=== PATIENT | male | born 1950 | race Caucasian/White ===

== ENCOUNTER 2018-06-09 12:57 | Inpatient (IN) | payer OTHER, BC ==
--- NOTE | 2018-06-09 13:21 | PDOC ---
History of Present Illness - General Chief Complaint: Shortness of Breath Stated Complaint: COPD, HYPOXIA Time Seen by Provider: 06/09/18 13:04 History Source: Patient, Spouse Exam Limitations: Dementia - History of Present Illness Initial Comments: 68 yo M history dementia, HTN, HL, COPD presents with SOB. History from patient is limited due to history of dementia. As per , he was admitted to the hospital previously at [place] with severe pneumonia, hypercarbic respiratory failure requiring intubation. Patient does not recall the admission due to dementia. He was diagnosed with COPD at the time. He was sent by PMD today for hypoxia to 76% measured in the office. Patient denies any complaints at present. As per , she notes that he has had decreased exercise tolerance recently. No cough, fever. +Leg swelling. Past History - Past Medical History Allergies/Adverse Reactions: Allergies Allergy/AdvReac Type Severity Reaction Status Date / Time No Known Allergies Allergy Verified 06/09/18 13:40 Home Medications: Ambulatory Orders Albuterol Sulfate Inhaler - [Ventolin Hfa Inhaler -] 1 - 2 inh PO TID PRN Alprazolam [Xanax] 2 mg PO BID 06/09/18 Atenolol [Tenormin] 50 mg PO DAILY 06/09/18 Atorvastatin Ca [Lipitor] 80 mg PO HS 06/09/18 Buprenorphine HCl 2 tab SL BID 06/09/18 Bupropion HCl [Wellbutrin Xl -] 150 mg PO DAILY 06/09/18 Bupropion HCl [Wellbutrin Xl -] 300 mg PO DAILY 06/09/18 Duloxetine HCl [Cymbalta] 60 mg PO BID 06/09/18 Fluticasone/Salmeterol [Advair 250-50 Diskus] 1 each IH BID PRN 06/09/18 Levothyroxine [Synthroid -] 75 mcg PO DAILY 06/09/18 Quetiapine Fumarate [Seroquel -] 75 mg PO BID 06/09/18 Tamsulosin HCl [Flomax] 0.4 mg PO BID 06/09/18 Timolol 0.25% [Timoptic 0.25%] 1 drop OU BID 06/09/18 Umeclidinium [place] [Incruse Ellipta] 62.5 mcg IH DAILY PRN 06/09/18 Review of Systems - Review of Systems Able to Perform ROS?: No (limited by dementia) *Physical Exam - Physical Exam Comments: GENERAL: Awake, alert, and oriented to person and place, in no acute distress HEAD: No signs of trauma EYES: PERRLA, EOMI, sclera anicteric, conjunctiva clear ENT: Auricles normal inspection, hearing grossly normal, nares patent, oropharynx clear without exudates. Moist mucosa NECK: Normal ROM, supple, no lymphadenopathy, JVD, or masses LUNGS: Breath sounds equal, clear to auscultation bilaterally. No wheezes, and no crackles HEART: Regular rate and rhythm, normal S1 and S2, no murmurs, rubs or gallops ABDOMEN: Soft, nontender, normoactive bowel sounds. No guarding, no rebound. No masses EXTREMITIES: Limited ROM LUE (history recent humerus fracture with nonunion). Remainder of extremities with normal range of motion. 2+ pitting edema to knees B/L. No clubbing or cyanosis. No cords, erythema, or tenderness. NEUROLOGICAL: Cranial nerves II through XII grossly intact. Normal speech. Motor and sensation intact. SKIN: Warm, Dry, normal turgor, no rashes or lesions noted. Heart Score/ECG Review - ECG Impressions Comment:: EKG read 13:59- NSR 84 bpm, no acute ST/T changes ED Treatment Course - LABORATORY CBC & Chemistry Diagram: 06/09/18 13:55 06/09/18 13:55 Medical Decision Making - Medical Decision Making 06/09/18 13:55 Pt presents with recent SOB, dec exercise tolerance, noted to have hypoxia at PMD office. Patient denies any symptoms and states that he is fine. Suspect CHF vs pna. Will obtain labs, CXR, EKG. 06/09/18 19:[address] Mcintosh at shift change. Awaiting BNP result, delayed by lab error, had to be repeated. DDx is COPD vs CHF vs. PE. Nebs given. If BNP is low (as per no history of CHF), PE would be more likely. CTA pending as well. Patient initially was refusing admission, however, when he is off O2, he desats down to 68%. He expressed concern that he would miss his pain mgmt appt tomorrow where he is prescribed his suboxone. It is difficult to get another appointment with her until June. I d/w hospitalist, as he was concerned about withdrawal, a consult can be placed to get his medication in hospital. *DC/Admit/Observation/Transfer Diagnosis at time of Disposition: Shortness of breath - Discharge Dispostion Condition at time of disposition: Guarded - Referrals Referrals: Napoleon Brown [Primary Care Provider] - - Patient Instructions - Post Discharge Activity
[2018-06-09 13:39] VITALS: BMI 26.1
[2018-06-09 14:23] LABS: BASO % 0.8 % (0-2.0); EOS % 5.5 % (0-4.5); HEMATOCRIT 40.1 % (35.4-49); HEMOGLOBIN 13.1 GM/dl (11.7-16.9); LYMPH % 23.3 % (8-40); MCH 32.6 pg (25.7-33.7); MCHC 32.7 g/dl (32.0-35.9); MEAN CELL VOLUME 99.8 fl (80-96); MONO % 8.9 % (3.8-10.2); NEUT % 61.5 % (42.8-82.8); PLATELET COUNT 178 K/MM3 (134-434); RBC 4.02 M/mm3 (4.00-5.60); RDW 14.8 % (11.9-15.9); WHITE BLOOD COUNT 4.7 K/mm3 (4.0-10.8)
[2018-06-09] MEDS ORDERED: ACETAMINOPHEN 325 MG TABLET (FP) PO ONE (14:29)
[2018-06-09] MEDS ORDERED: ACETAMINOPHEN 325 MG TABLET (FP) ONE (14:32)
[2018-06-09 14:36] LABS: ALBUMIN 3.3 g/dl (3.5-5.0); ALK PHOS 58 U/L (32-92); ANION GAP 5 MMOL/L (8-16); BILIRUBIN,TOTAL 0.7 mg/dl (0.2-1.0); BLOOD UREA NITROGEN 18 mg/dl (7-18); CALCIUM 8.6 mg/dl (8.4-10.2); CHLORIDE 94 mmol/L (98-107); CO2 36 mmol/L (22-28); CREATININE 0.8 mg/dl (0.6-1.3); GLUCOSE,RANDOM 130 mg/dl (74-106); POTASSIUM 3.9 mmol/L (3.5-5.1); SGOT/AST 22 U/L (10-42); SGPT/ALT 16 U/L (10-40); SODIUM 135 mmol/L (136-145); TOT PROT 5.8 g/dl (6.4-8.3)
[2018-06-09 14:42] LABS: INR 1.12 (0.82-1.09); PROTHROMBIN TIME (PATIENT) 12.5 SEC (10.2-13.0)
[2018-06-09 17:50] LABS: URINE APPEARANCE Clear; URINE BILIRUBIN Negative (NEGATIVE); URINE COLOR Yellow; URINE GLUCOSE (UA) Negative (NEGATIVE); URINE KETONE Negative (NEGATIVE); URINE LEUK ESTERASE Negative (NEGATIVE); URINE NITRITE Negative (NEGATIVE); URINE PROTEIN Negative (NEGATIVE); URINE UROBILINOGEN 0.2 (0.2-1.0)
[2018-06-09] MEDS: ALBUTEROL SO4 2.5/IPRATROPIUM 0.5 INH SOL 3 ML VIAL.NEB. NEB SCH ×4 (18:30→20:15)
[2018-06-09] MEDS ORDERED: ALBUTEROL SO4 2.5/IPRATROPIUM 0.5 INH SOL 3 ML VIAL.NEB. NEB ONE ×2 (18:44→18:53)
--- NOTE | 2018-06-09 19:19 | PDOC ---
*Physical Exam - Vital Signs Last Vital Signs Temp Pulse Resp BP Pulse Ox 97.7 F 77 20 101/74 92 L 06/09/18 13:00 06/09/18 17:30 06/09/18 17:30 06/09/18 17:30 06/09/18 17:30 ED Treatment Course - LABORATORY CBC & Chemistry Diagram: 06/09/18 13:55 06/09/18 13:55 - ADDITIONAL ORDERS Additional order review: Laboratory Results 06/09/18 06/09/18 06/09/18 17:30 13:55 13:55 PT with INR INR Sodium Potassium Chloride Carbon Dioxide Anion Gap BUN Creatinine Creat Clearance w eGFR Random Glucose Lactic Acid 1.4 Calcium Total Bilirubin AST ALT Alkaline Phosphatase Creatine Kinase Troponin I Total Protein Albumin Urine Color Yellow Urine Appearance Clear Urine pH 6.0 Ur Specific [place] 1.015 Urine Protein Negative Urine Glucose (UA) Negative Urine Ketones Negative Urine Blood Negative Urine Nitrite Negative Urine Bilirubin Negative Urine Urobilinogen 0.2 Ur Leukocyte Esterase Negative Blood Type A POSITIVE Antibody Screen 06/09/18 06/09/18 06/09/18 13:55 13:55 13:55 PT with INR INR Sodium 135 L Potassium 3.9 Chloride 94 L Carbon Dioxide 36 H Anion Gap 5 L BUN 18 Creatinine 0.8 Creat Clearance w eGFR > 60 Random Glucose 130 H Lactic Acid Calcium 8.6 Total Bilirubin 0.7 AST 22 ALT 16 Alkaline Phosphatase 58 Creatine Kinase 38 Troponin I < 0.03 Total Protein 5.8 L Albumin 3.3 L Urine Color Urine Appearance Urine pH Ur Specific [place] Urine Protein Urine Glucose (UA) Urine Ketones Urine Blood Urine Nitrite Urine Bilirubin Urine Urobilinogen Ur Leukocyte Esterase Blood Type A POSITIVE Antibody Screen Negative 06/09/18 13:55 PT with INR 12.5 INR 1.12 Sodium Potassium Chloride Carbon Dioxide Anion Gap BUN Creatinine Creat Clearance w eGFR Random Glucose Lactic Acid Calcium Total Bilirubin AST ALT Alkaline Phosphatase Creatine Kinase Troponin I Total Protein Albumin Urine Color Urine Appearance Urine pH Ur Specific [place] Urine Protein Urine Glucose (UA) Urine Ketones Urine Blood Urine Nitrite Urine Bilirubin Urine Urobilinogen Ur Leukocyte Esterase Blood Type Antibody Screen 06/09/18 13:55 RBC 4.02 MCV 99.8 H MCHC 32.7 RDW 14.8 MPV 9.0 Neutrophils % 61.5 Lymphocytes % 23.3 Monocytes % 8.9 Eosinophils % 5.5 H Basophils % 0.8 - Medications Given in the ED: ED Medications Discontinued Medications Generic Name Dose Route Start Last Admin Trade Name Micky PRN Reason Stop Dose Admin Albuterol/Ipratropium 1 amp 06/09/18 18:00 06/09/18 19:10 Duoneb - NEB 06/09/18 18:46 1 amp Q15M KARAN Administration Progress Note - Progress Note Progress Note: Care of this patient was transferred to ri at 7pm from Dr. Evans. Patient is a 68 year old male with some baseline dementia who was sent in from his PMD for evaluation of hypoxia. Patient was noted to have an O2 saturation of 76% in ED on room air. Patient was placed on oxygen and his O2 sat improved to the mid 90s. Patient workup is nearly complete however he has a BNP as well as a BNP and CT under the chest pending to rule out CHF and PE. Patient will need an admission once his workup is complete. BNP was normal Patient's CT of the chest showed no evidence of pulmonary embolism however does show consolidation of the right lower lobe as well as marked COPD changes. Of note also there is a nodule in the left upper lobe. Patient will be admitted for pneumonia and COPD exacerbation. She will be admitted to the hospitalist service. *DC/Admit/Observation/Transfer Diagnosis at time of Disposition: Shortness of breath Pneumonia Qualifiers: Pneumonia type: due to unspecified organism Laterality: right Lung location: lower lobe of lung Qualified Code(s): J18.1 - Lobar pneumonia, unspecified organism COPD (chronic obstructive pulmonary disease) Qualifiers: COPD type: unspecified COPD Qualified Code(s): J44.9 - Chronic obstructive pulmonary disease, unspecified - Discharge Dispostion Condition at time of disposition: Guarded Decision to Admit order: Yes - Referrals Referrals: Napoleon Brown [Primary Care Provider] - - Patient Instructions - Post Discharge Activity
[2018-06-09 20:25] LABS: N-TERMINAL BNP 24.53 pg/ml (5-125)
[2018-06-09] MEDS ORDERED: CEFTRIAXONE 1,000 MG in DEXTROSE 5%-WATER - 50 ML IVPB ONE (22:20)
[2018-06-09] MEDS ORDERED: cefTRIAXone SODIUM 1 GM VIAL ONE (22:27)
[2018-06-10] MEDS ORDERED: BUPRENORPHINE HCL 2 MG TAB.SUBL SL PRN (01:30)
--- NOTE | 2018-06-10 01:39 | HP ---
CHIEF COMPLAINT: hypoxia PCP: Kevin HISTORY OF PRESENT ILLNESS: This is a 68 year old female with a significant PMH HTN, HLD, COPD, recent hospitalization for pneumonia with hypercarbic respiratory failure requiring intubation at [facility] one month ago who presented to the ED from his PCP office for hypoxia. Ox sat 76 in PCP office. Pt reports that pt is supposed to use oxygen at home but refuses. Upon exam pt initially difficult and combative but settled down and permitted exam. Pt's conversation very tangential and difficult to obtain accurate information from him. He denies any respiratory distress, fever or cough. ER course was notable for: (1) ox sat 76 on room air, up into 90s with 5LNC (2) CO2 36 on BMP (3) WBC 4.7 Recent Travel: pt denies PAST MEDICAL HISTORY: dementia, HTN, HLD, COPD, PNA, hypercarbic respiratory failure, recent left arm fracture PAST SURGICAL HISTORY: inguinal hernia repair Social History: Smoking: pipe 2-3 times daily Alcohol: wine a couple times/week Drugs: pt denies Family History: brother as , PNA mother age 96 father in his 60s, Colon vs liver ca Allergies No Known Allergies Allergy (Verified 06/09/18 13:40) HOME MEDICATIONS: 3 Medication Instructions Recorded Albuterol Sulfate Inhaler - 1 - 2 inh PO TID PRN 06/09/18 [Ventolin Hfa Inhaler -] Alprazolam [Xanax] 2 mg PO BID 06/09/18 Atenolol [Tenormin] 50 mg PO DAILY 06/09/18 Atorvastatin Ca [Lipitor] 80 mg PO HS 06/09/18 Buprenorphine HCl 2 tab SL BID 06/09/18 Bupropion HCl [Wellbutrin Xl -] 150 mg PO DAILY 06/09/18 Bupropion HCl [Wellbutrin Xl -] 300 mg PO DAILY 06/09/18 Duloxetine HCl [Cymbalta] 60 mg PO BID 06/09/18 Fluticasone/Salmeterol [Advair 1 each IH BID PRN 06/09/18 250-50 Diskus] Levothyroxine [Synthroid -] 75 mcg PO DAILY 06/09/18 Quetiapine Fumarate [Seroquel -] 75 mg PO BID 06/09/18 Tamsulosin HCl [Flomax] 0.4 mg PO BID 06/09/18 Timolol 0.25% [Timoptic 0.25%] 1 drop OU BID 06/09/18 Umeclidinium [place] [Incruse 62.5 mcg IH DAILY PRN 06/09/18 Ellipta] REVIEW OF SYSTEMS CONSTITUTIONAL: Absent: fever, chills, diaphoresis, generalized weakness, malaise, loss of appetite, weight change HEENT: Absent: rhinorrhea, nasal congestion, throat pain, throat swelling, difficulty swallowing, mouth swelling, ear pain, eye pain, visual changes CARDIOVASCULAR: Absent: chest pain, syncope, palpitations, irregular heart rate, lightheadedness , peripheral edema RESPIRATORY: Absent: cough, shortness of breath, dyspnea with exertion, orthopnea, wheezing, stridor, hemoptysis GASTROINTESTINAL: Absent: abdominal pain, abdominal distension, nausea, vomiting, diarrhea, constipation, melena, hematochezia GENITOURINARY: Absent: dysuria, frequency, urgency, hesitancy, hematuria, flank pain, genital pain MUSCULOSKELETAL: Absent: myalgia, arthralgia, joint swelling, back pain, neck pain SKIN: Absent: rash, itching, pallor HEMATOLOGIC/IMMUNOLOGIC: Absent: easy bleeding, easy bruising, lymphadenopathy, frequent infections ENDOCRINE: Absent: unexplained weight gain, unexplained weight loss, heat intolerance, cold intolerance NEUROLOGIC: Absent: headache, focal weakness or paresthesias, dizziness, unsteady gait, seizure, mental status changes, bladder or bowel incontinence PSYCHIATRIC: Absent: anxiety, depression, suicidal or homicidal ideation, hallucinations. PHYSICAL EXAMINATION Vital Signs - 24 hr 3 06/09/18 06/09/18 06/09/18 13:00 13:55 14:44 Temperature 97.7 F Pulse Rate 92 H Pulse Rate [ 78 Apical] Respiratory 18 19 Rate Blood Pressure 103/75 Blood Pressure 105/71 [Right Arm] O2 Sat by Pulse 96 97 96 Oximetry (%) 3 06/09/18 06/09/18 06/09/18 15:24 15:35 17:30 Temperature Pulse Rate 81 Pulse Rate [ 86 77 Apical] Respiratory 22 H 20 Rate Blood Pressure Blood Pressure 109/72 101/74 [Right Arm] O2 Sat by Pulse 93 L 96 92 L Oximetry (%) 3 06/09/18 06/09/18 06/09/18 21:00 21:26 21:56 Temperature Pulse Rate Pulse Rate [ 83 92 H 92 H Apical] Respiratory 18 21 H 19 Rate Blood Pressure Blood Pressure 116/88 103/77 96/78 [Right Arm] O2 Sat by Pulse 94 L 91 L 90 L Oximetry (%) 3 06/10/18 00:35 Temperature 97.8 F Pulse Rate Pulse Rate [ 89 Apical] Respiratory 18 Rate Blood Pressure Blood Pressure 104/69 [Right Arm] O2 Sat by Pulse 94 L Oximetry (%) GENERAL: Awake, alert, and oriented to person and hospital, in no acute distress. HEAD: Normal with no signs of trauma. EYES: Pupils equal, round and reactive to light, extraocular movements intact, sclera anicteric, conjunctiva clear. No lid lag. EARS, NOSE, THROAT: Ears normal, nares patent, oropharynx clear without exudates. Moist mucous membranes. NECK: Normal range of motion, supple without lymphadenopathy, JVD, or masses. LUNGS: Breath sounds equal, scattered expiratory wheezes. Able to speak in full sentences. No accessory muscle use. HEART: Regular rate and rhythm, normal S1 and S2 without murmur, rub or gallop. ABDOMEN: Soft, nontender, not distended, normoactive bowel sounds, no guarding, no rebound, no masses. No hepatomegaly or splenomegaly. MUSCULOSKELETAL: Normal range of motion at all joints. No bony deformities or tenderness. No CVA tenderness. L arm in a sling. UPPER EXTREMITIES: 2+ pulses, warm, well-perfused. No cyanosis. No clubbing. No peripheral edema. LOWER EXTREMITIES: 1+ pulses, warm, well-perfused. No calf tenderness. No peripheral edema. NEUROLOGICAL: Cranial nerves II-XII intact. Normal speech. Normal gait. PSYCHIATRIC: Good eye contact. tangential speech, discusses many conspiracy theories about health care in [place] SKIN: Warm, dry, normal turgor, no rashes or lesions noted, normal capillary refill. old ecchymosis to left hip Laboratory Results - last 24 hr 3 06/09/18 06/09/18 06/09/18 13:55 13:55 13:55 WBC 4.7 RBC 4.02 Hgb 13.1 Hct 40.1 MCV 99.8 H MCH 32.6 MCHC 32.7 RDW 14.8 Plt Count 178 MPV 9.0 Absolute Neuts (auto) 2.9 Neutrophils % 61.5 Lymphocytes % 23.3 Monocytes % 8.9 Eosinophils % 5.5 H Basophils % 0.8 PT with INR 12.5 INR 1.12 Sodium 135 L Potassium 3.9 Chloride 94 L Carbon Dioxide 36 H Anion Gap 5 L BUN 18 Creatinine 0.8 Creat Clearance w eGFR > 60 Random Glucose 130 H Lactic Acid 1.4 Calcium 8.6 Total Bilirubin 0.7 AST 22 ALT 16 Alkaline Phosphatase 58 Creatine Kinase 38 Troponin I < 0.03 B-Natriuretic Peptide 24.53 Total Protein 5.8 L Albumin 3.3 L Urine Color Urine Appearance Urine pH Ur Specific [place] Urine Protein Urine Glucose (UA) Urine Ketones Urine Blood Urine Nitrite Urine Bilirubin Urine Urobilinogen Ur Leukocyte Esterase Blood Type A POSITIVE Antibody Screen Negative 3 Urine Color Yellow 06/09/18 17:30 Urine Appearance Clear 06/09/18 17:30 Urine pH 6.0 (4.5-8) 06/09/18 17:30 Ur Specific [place] 1.015 (1.010-1.035) 06/09/18 17:30 Urine Protein Negative (NEGATIVE) 06/09/18 17:30 Urine Glucose (UA) Negative (NEGATIVE) 06/09/18 17:30 Urine Ketones Negative (NEGATIVE) 06/09/18 17:30 Urine Blood Negative (NEGATIVE) 06/09/18 17:30 Urine Nitrite Negative (NEGATIVE) 06/09/18 17:30 Urine Bilirubin Negative (NEGATIVE) 06/09/18 17:30 Ur Leukocyte Esterase Negative (NEGATIVE) 06/09/18 17:30 Radiology Reports Chest CTA IMPRESSION: There is no evidence of a pulmonary embolus within the main pulmonary artery and its proximal branches, bilaterally. Atelectatic changes/ consolidation of the right lung base, suggestive of pneumonia. Moderate to marked COPD changes mainly involving the upper lobes. 6 mm nodule in the left upper lobe, posteriorly abutting the fissure, seen on axial image 21 for which a follow-up CT scan of the chest in one year is needed. Reported By: Miguel Angel Marmolejo MD 06/09/18 8143 CXR portable Imaging reveals clear lungs, unfolded aorta, prominent fabiola especially on the right and normal heart. An acute process is not seen. The angles are sharp and the bones and soft tissues are intact. There are no prior studies for comparison. Reported By: Gigi Guillen MD 06/09/18 1804 ASSESSMENT/PLAN: 68yM with PMH dementia, HTN, HLD, COPD, PNA, hypercarbic respiratory failure presented to the ED with hypoxia. hypoxic respiratory failure/COPD exac - pt refusing ABG but pt is likely hypercarbic as well. - cont oxygen. - pulmonary consult - doubt CT findings represent acute PNA given lack of fever, cough or elevated WBC, will hold further ABT - solumedrol 40mg IVP q6h - duoneb QID - home advair changed to formulary symbicort - home incruse changed to formulary spiriva HTN/HLD - cont pt home meds Psych/dementia - cont home meds DVT PPX - heparin 5000u SC TID FEN - tolerating po - bmp in am - low sodium diet as tolerated. Dispo: pt currently requires further inpatient management of his emergent condition. Visit type - Emergency Visit Emergency Visit: Yes ED Registration Date: 06/09/18 Care time: The patient presented to the Emergency Department on the above date and was hospitalized for further evaluation of their emergent condition. - New Patient This patient is new to me today: Yes Date on this admission: 06/10/18 - Critical Care Critical Care patient: No
[2018-06-10] MEDS ORDERED: ALBUTEROL SO4 0.083% IH SOL 2.5 MG/3 ML VIAL.NEB. NEB PRN (04:04)
[2018-06-10] MEDS: methylPREDNISolone NA SUCC 40 MG/1 ML VIAL IVPUSH SCH ×2 (04:23→08:14)
[2018-06-10] MEDS ORDERED: LEVOTHYROXINE NA 75 MCG TABLET (FP) PO SCH (07:00)
[2018-06-10] MEDS ORDERED: ALBUTEROL SO4 2.5/IPRATROPIUM 0.5 INH SOL 3 ML VIAL.NEB. NEB SCH (08:00)
[2018-06-10 08:27] LABS: BASO % 0.2 % (0-2.0); EOS % 0.4 % (0-4.5); HEMOGLOBIN 13.5 GM/dl (11.7-16.9); LYMPH % 4.7 % (8-40); MCH 32.2 pg (25.7-33.7); MCHC 32.1 g/dl (32.0-35.9); MEAN CELL VOLUME 100.5 fl (80-96); MEAN PLT VOLUME 9.2 fl (7.5-11.1); MONO % 0.5 % (3.8-10.2); NEUT % 94.2 % (42.8-82.8); PLATELET COUNT 204 K/MM3 (134-434); RBC 4.18 M/mm3 (4.00-5.60); RDW 15.5 % (11.9-15.9); WHITE BLOOD COUNT 8.3 K/mm3 (4.0-10.8)
[2018-06-10 08:34] LABS: ANION GAP 2 MMOL/L (8-16); BLOOD UREA NITROGEN 15 mg/dl (7-18); CALCIUM 8.7 mg/dl (8.4-10.2); CHLORIDE 98 mmol/L (98-107); CO2 36 mmol/L (22-28); CREATININE 0.7 mg/dl (0.6-1.3); GLUCOSE,RANDOM 128 mg/dl (74-106); MAGNESIUM 1.9 mg/dL (1.8-2.4); PHOSPHOROUS 3.5 mg/dl (2.5-4.6); POTASSIUM 4.2 mmol/L (3.5-5.1); SODIUM 136 mmol/L (136-145)
[2018-06-10 09:29] VITALS: BP 118/73; TEMP 97.8
[2018-06-10] MEDS ORDERED: TAMSULOSIN HCL 0.4 MG CAP PO SCH (10:00)
[2018-06-10] MEDS ORDERED: TIOTROPIUM BROMIDE 2.5 MCG (SPIRIVA) RESPIMAT INHALER IH SCH (10:00)
[2018-06-10] MEDS ORDERED: TIMOLOL 0.25% OPHTHALMIC SOL 5 ML BOTTLE OU SCH (10:00)
[2018-06-10] MEDS ORDERED: BUDESONIDE/FORMETEROL FUMARATE 80/4.5 mcg INHALER IH SCH (10:00)
[2018-06-10] MEDS ORDERED: ATENOLOL 50 MG TABLET (FP) PO SCH (10:00)
[2018-06-10] MEDS ORDERED: QUEtiapine FUMARATE 25 MG TABLET (FP) PO SCH (10:00)
[2018-06-10] MEDS ORDERED: ALPRAZolam 2 MG TABLET PO SCH ×2 (10:00→22:00)
[2018-06-10] MEDS ORDERED: DULoxetine HCL 30 MG CAPSULE.DR (FP) PO SCH (10:00)
--- NOTE | 2018-06-10 10:36 | PN ---
Physical Exam: SUBJECTIVE: Patient seen and examined OBJECTIVE: Vital Signs Period Temp Pulse Resp BP Sys/Jarvis Pulse Ox Last 24 Hr 97.5 F-97.8 F 77-93 17-22 96-118/69-91 76-97 GENERAL: The patient is awake, alert, and fully oriented, in no acute distress. HEAD: Normal with no signs of trauma. EYES: PERRL, extraocular movements intact, sclera anicteric, conjunctiva clear. No ptosis. ENT: Ears normal, nares patent, oropharynx clear without exudates, moist mucous membranes. NECK: Trachea midline, full range of motion, supple. LUNGS: Breath sounds equal, clear to auscultation bilaterally, no wheezes, no crackles, no accessory muscle use. HEART: Regular rate and rhythm, S1, S2 without murmur, rub or gallop. ABDOMEN: Soft, nontender, nondistended, normoactive bowel sounds, no guarding, no rebound, no hepatosplenomegaly, no masses. EXTREMITIES: 2+ pulses, warm, well-perfused, no edema. NEUROLOGICAL: Cranial nerves II through XII grossly intact. Normal speech, gait not observed. PSYCH: Normal mood, normal affect. SKIN: Warm, dry, normal turgor, no rashes or lesions noted Laboratory Results - last 24 hr 06/09/18 06/09/18 06/09/18 13:55 13:55 13:55 WBC 4.7 RBC 4.02 Hgb 13.1 Hct 40.1 MCV 99.8 H MCH 32.6 MCHC 32.7 RDW 14.8 Plt Count 178 MPV 9.0 Absolute Neuts (auto) 2.9 Neutrophils % 61.5 Lymphocytes % 23.3 Monocytes % 8.9 Eosinophils % 5.5 H Basophils % 0.8 PT with INR 12.5 INR 1.12 Sodium 135 L Potassium 3.9 Chloride 94 L Carbon Dioxide 36 H Anion Gap 5 L BUN 18 Creatinine 0.8 Creat Clearance w eGFR > 60 Random Glucose 130 H Lactic Acid Calcium 8.6 Phosphorus Magnesium Total Bilirubin 0.7 AST 22 ALT 16 Alkaline Phosphatase 58 Creatine Kinase 38 Troponin I B-Natriuretic Peptide 24.53 Total Protein 5.8 L Albumin 3.3 L Urine Color Urine Appearance Urine pH Ur Specific [place] Urine Protein Urine Glucose (UA) Urine Ketones Urine Blood Urine Nitrite Urine Bilirubin Urine Urobilinogen Ur Leukocyte Esterase Blood Type Antibody Screen 06/09/18 06/09/18 06/09/18 13:55 13:55 13:55 WBC RBC Hgb Hct MCV MCH MCHC RDW Plt Count MPV Absolute Neuts (auto) Neutrophils % Lymphocytes % Monocytes % Eosinophils % Basophils % PT with INR INR Sodium Potassium Chloride Carbon Dioxide Anion Gap BUN Creatinine Creat Clearance w eGFR Random Glucose Lactic Acid 1.4 Calcium Phosphorus Magnesium Total Bilirubin AST ALT Alkaline Phosphatase Creatine Kinase Troponin I < 0.03 B-Natriuretic Peptide Total Protein Albumin Urine Color Urine Appearance Urine pH Ur Specific [place] Urine Protein Urine Glucose (UA) Urine Ketones Urine Blood Urine Nitrite Urine Bilirubin Urine Urobilinogen Ur Leukocyte Esterase Blood Type A POSITIVE Antibody Screen Negative 06/09/18 06/09/18 06/10/18 13:55 17:30 08:04 WBC 8.3 RBC 4.18 Hgb 13.5 Hct 42.0 MCV 100.5 H MCH 32.2 MCHC 32.1 RDW 15.5 Plt Count 204 MPV 9.2 Absolute Neuts (auto) 7.9 Neutrophils % 94.2 H D Lymphocytes % 4.7 L D Monocytes % 0.5 L D Eosinophils % 0.4 D Basophils % 0.2 PT with INR INR Sodium Potassium Chloride Carbon Dioxide Anion Gap BUN Creatinine Creat Clearance w eGFR Random Glucose Lactic Acid Calcium Phosphorus Magnesium Total Bilirubin AST ALT Alkaline Phosphatase Creatine Kinase Troponin I B-Natriuretic Peptide Total Protein Albumin Urine Color Yellow Urine Appearance Clear Urine pH 6.0 Ur Specific [place] 1.015 Urine Protein Negative Urine Glucose (UA) Negative Urine Ketones Negative Urine Blood Negative Urine Nitrite Negative Urine Bilirubin Negative Urine Urobilinogen 0.2 Ur Leukocyte Esterase Negative Blood Type A POSITIVE Antibody Screen 06/10/18 08:04 WBC RBC Hgb Hct MCV MCH MCHC RDW Plt Count MPV Absolute Neuts (auto) Neutrophils % Lymphocytes % Monocytes % Eosinophils % Basophils % PT with INR INR Sodium 136 Potassium 4.2 Chloride 98 Carbon Dioxide 36 H Anion Gap 2 L BUN 15 Creatinine 0.7 Creat Clearance w eGFR > 60 Random Glucose 128 H Lactic Acid Calcium 8.7 Phosphorus 3.5 Magnesium 1.9 Total Bilirubin AST ALT Alkaline Phosphatase Creatine Kinase Troponin I B-Natriuretic Peptide Total Protein Albumin Urine Color Urine Appearance Urine pH Ur Specific [place] Urine Protein Urine Glucose (UA) Urine Ketones Urine Blood Urine Nitrite Urine Bilirubin Urine Urobilinogen Ur Leukocyte Esterase Blood Type Antibody Screen Active Medications Generic Name Dose Route Start Last Admin Trade Name Freq PRN Reason Stop Dose Admin Albuterol Sulfate 1 amp 06/10/18 04:04 Ventolin 0.083% Nebulizer Soln - NEB Q4H PRN SHORT OF BREATH/WHEEZING Alprazolam 2 mg 06/10/18 22:00 Xanax - PO HS KARAN Atenolol 50 mg 06/10/18 10:00 06/10/18 09:55 Tenormin - PO 50 mg DAILY KARAN Administration Atorvastatin Calcium 80 mg 06/10/18 22:00 Lipitor - PO HS [facility] Budesonide/Formoterol Fumarate 2 puff 06/10/18 10:00 06/10/18 10:12 Symbicort 80/4.5mcg - IH 2 puff BID KARAN Administration Buprenorphine HCl 2 mg 06/10/18 01:30 Subutex - SL BID PRN PAIN LEVEL 6-10 Bupropion HCl 150 mg 06/10/18 10:00 06/10/18 09:54 Wellbutrin Xl - PO 150 mg DAILY KARAN Administration Bupropion HCl 300 mg 06/10/18 10:00 06/10/18 09:54 Wellbutrin Xl - PO 300 mg DAILY KARAN Administration Duloxetine HCl 60 mg 06/10/18 10:00 06/10/18 09:53 Cymbalta - PO 60 mg BID KARAN Administration Levothyroxine Sodium 75 mcg 06/10/18 07:00 06/10/18 06:48 Synthroid - PO 75 mcg DAILY@0700 KARAN Administration Methylprednisolone Sodium Succinate 40 mg 06/10/18 04:15 06/10/18 08:14 Solu-Medrol - IVPUSH 40 mg Q6H-IV KARAN Administration Quetiapine Fumarate 75 mg 06/10/18 10:00 06/10/18 09:54 Seroquel - PO 75 mg BID KARAN Administration Tamsulosin HCl 0.4 mg 06/10/18 10:00 06/10/18 09:53 Flomax - PO 0.4 mg BID KARAN Administration Timolol [place] 1 drop 06/10/18 10:00 06/10/18 10:12 Timoptic 0.25% OU 1 drop BID KARAN Administration Tiotropium [place] 2 puff 06/10/18 10:00 06/10/18 10:12 Spiriva Respimat IH 2 puff DAILY KARAN Administration ASSESSMENT/PLAN:
--- NOTE | 2018-06-10 10:43 | PN ---
Progress Note (short form) - Note Progress Note: PULMONARY CONSULTATION DICTATED 06/10/18 IMP ACUTE ON CHRONIC HYPOXEMIC/HYPERCAPNEIC RESPIRATORY FAILURE RLL CONSOLIDATION LIKELY ATELECTASIS CANNOT R/O PNEUMONIA ADVANCED COPD HTN HLD PLAN INHALED BRONCHODILATORS IV STEROIDS ABX SUPPLEMENTAL O2 SPUTUM C+S STRESS IMPORTANCE OF COMPLIANCE WITH O2 AND MEDS Problem List - Problems (1) Acute on chronic respiratory failure with hypoxia and hypercapnia Code(s): J96.21 - ACUTE AND CHRONIC RESPIRATORY FAILURE WITH HYPOXIA; J96.22 - ACUTE AND CHRONIC RESPIRATORY FAILURE WITH HYPERCAPNIA (2) COPD (chronic obstructive pulmonary disease) Code(s): J44.9 - CHRONIC OBSTRUCTIVE PULMONARY DISEASE, UNSPECIFIED Qualifiers: COPD type: unspecified COPD Qualified Code(s): J44.9 - Chronic obstructive pulmonary disease, unspecified (3) Pneumonia Code(s): J18.9 - PNEUMONIA, UNSPECIFIED ORGANISM Qualifiers: Pneumonia type: due to unspecified organism Laterality: right Lung location: lower lobe of lung Qualified Code(s): J18.1 - Lobar pneumonia, unspecified organism (4) Shortness of breath Code(s): R06.02 - SHORTNESS OF BREATH (5) HTN (hypertension) Code(s): I10 - ESSENTIAL (PRIMARY) HYPERTENSION (6) HLD (hyperlipidemia) Code(s): E78.5 - HYPERLIPIDEMIA, UNSPECIFIED
--- NOTE | 2018-06-10 11:13 | CONS ---
DATE OF CONSULTATION: 06/10/2018 PULMONARY CONSULTATION REFERRING PHYSICIAN: Kaylene Hunt NP Patient is a 68-year-old white male with past medical history of COPD, recently hospitalized at [facility] secondary to pneumonia complicated by hypercapnic respiratory failure requiring intubation one month ago, discharged home on inhaled bronchodilators, and home O2 for which he is noncompliant, also has a history of hypertension, hyperlipidemia, admitted to [facility] secondary to hypoxemia. Patient apparently was at his PCP's office and was noted to have an O2 saturation of 76% on room air. Patient presented to the emergency in [facility] for the above. Patient denies any complaints of chest pain, nausea, vomiting, or diaphoresis. Very difficult to obtain history from the patient but he states that he has an occasional cough with productive dark sputum. He also complains of shortness of breath with exertion. He states he has a history of tobacco use, smoking cigarettes 10 years, and currently smokes a pipe. Denies any history of occupational exposure to chemicals or fumes. As stated before, the patient was discharged home on home oxygen and refuses to use it. He also was discharged on beta agonist and anticholinergics, which again, he refuses to use. On current hospitalization, he was started on IV steroids and inhaled bronchodilators with some clinical improvement. He has also had a CT scan of the chest which revealed no evidence of pulmonary emboli but revealed right lower lobe consolidation most likely secondary to atelectasis. PAST MEDICAL HISTORY: Again includes COPD, pneumonia, hypertension, hyperlipidemia, history of hypercapnic respiratory failure secondary to pneumonia. REVIEW OF SYSTEMS: Denies shortness of breath at this time. Positive for cough. No chest pain. No palpitation. No fever. No chills. No hemoptysis. No abdominal pain. SOCIAL HISTORY: Again, smokes a pipe 2-3 times daily. Previous history of smoking tobacco years ago. Retired schoolteacher. CURRENT MEDICATIONS: Include Symbicort 80/4.5, Solu-Medrol, Flomax, Wellbutrin, Cymbalta, Spiriva, Seroquel, Xanax, albuterol, Tenormin, and Timoptic, Lipitor, and Synthroid. PHYSICAL EXAMINATION: General: Patient is a thin, white male, wide awake, alert, no acute distress. Vital Signs: He is afebrile, blood pressure is 118/73, respiratory rate is 18, and O2 saturation is 95% on nasal O2, I believe 5 L. HEENT: Exam is normocephalic, atraumatic. Neck: Supple. Heart: Regular, S1, S2. Chest: Bilateral wheezes and rhonchi. Abdomen: Soft. Bowel sounds positive. Extremities: No cyanosis or edema. LABORATORIES: WBC is 8.3, hemoglobin 13.5, hematocrit 42.0, platelet count 204,000, there are 94 polys, 4 lymphs, 5 monos. BUN 15, creatinine 0.6. Chest CT again reveals [id number] COPD changes in the upper lobes, atelectatic changes in right lung base with consolidation, no evidence of pulmonary emboli, a 6-mm nodule in the left upper lobe. IMPRESSION: Acute on chronic hypoxemic likely hypercapnic respiratory failure secondary to: 1. Advanced chronic obstructive pulmonary disease with acute exacerbation. 2. Right lower lobe consolidation, likely atelectasis, rule out pneumonia. 3. Hypertension. 4. Hyperlipidemia. 5. Noncompliance. PLAN: IV steroids. Inhaled bronchodilators. Supplemental O2. Antibiotics. Followup chest x-ray. Stress importance of using O2 at home as well as inhaled bronchodilators, which patient refuses. DANIELLA FORTUNE M.D. ANATOLIY/[id number]
[2018-06-10 12:27] VITALS: PULSE 73
--- NOTE | 2018-06-10 12:37 | DS ---
Physical Exam: SUBJECTIVE: Patient seen and examined, Sonya canseco at bedside, patient and is Requesting discharge from the hospital against medical advice. OBJECTIVE: This is a 68 year old female with a significant PMH HTN, HLD, COPD, recent hospitalization for pneumonia with hypercarbic respiratory failure requiring intubation at one month ago who presented to the ED from his PCP office for hypoxia. Ox sat 76 in PCP office. Pt reports that pt is supposed to use oxygen at home but refuses. Upon exam pt initially difficult and combative but settled down and permitted exam. Pt's conversation very tangential and difficult to obtain accurate information from him. He denies any respiratory distress, fever or cough. ER course was notable for: (1) ox sat 76 on room air, up into 90s with 5LNC (2) CO2 36 on BMP (3) WBC 4.7 Vital Signs Period Temp Pulse Resp BP Sys/Jarvis Pulse Ox Last 24 Hr 97.5 F-97.8 F 73-93 17-22 96-118/69-91 76-97 PHYSICAL EXAM GENERAL: The patient is awake, alert, and oriented times person and place, agitated HEAD: Normal with no signs of trauma. EYES: PERRL, extraocular movements intact, sclera anicteric, conjunctiva clear. ENT: Ears normal, nares patent, oropharynx clear without exudates, moist mucous membranes. NECK: Trachea midline, full range of motion, supple. LUNGS: course rhonchi with moderate inspiratory wheeze to apexes, diminished to bases, 2L NC (home dose oxygen) no crackles, no accessory muscle use. HEART: Regular rate and rhythm, S1, S2 without murmur, rub or gallop. ABDOMEN: Soft, nontender, nondistended, normoactive bowel sounds, no guarding, no rebound, no hepatosplenomegaly, no masses. EXTREMITIES: 2+ pulses, warm, well-perfused, trace bilateral lower extremity edema. NEUROLOGICAL: Cranial nerves II through XII grossly intact. Normal speech, gait not observed. PSYCH: Normal mood, normal affect. SKIN: Warm, dry, normal turgor, no rashes or lesions noted. LABS Laboratory Results - last 24 hr 06/09/18 06/09/18 06/09/18 13:55 13:55 13:55 WBC 4.7 RBC 4.02 Hgb 13.1 Hct 40.1 MCV 99.8 H MCH 32.6 MCHC 32.7 RDW 14.8 Plt Count 178 MPV 9.0 Absolute Neuts (auto) 2.9 Neutrophils % 61.5 Lymphocytes % 23.3 Monocytes % 8.9 Eosinophils % 5.5 H Basophils % 0.8 PT with INR 12.5 INR 1.12 Sodium 135 L Potassium 3.9 Chloride 94 L Carbon Dioxide 36 H Anion Gap 5 L BUN 18 Creatinine 0.8 Creat Clearance w eGFR > 60 Random Glucose 130 H Lactic Acid Calcium 8.6 Phosphorus Magnesium Total Bilirubin 0.7 AST 22 ALT 16 Alkaline Phosphatase 58 Creatine Kinase 38 Troponin I B-Natriuretic Peptide 24.53 Total Protein 5.8 L Albumin 3.3 L Urine Color Urine Appearance Urine pH Ur Specific Earth Urine Protein Urine Glucose (UA) Urine Ketones Urine Blood Urine Nitrite Urine Bilirubin Urine Urobilinogen Ur Leukocyte Esterase Blood Type Antibody Screen 06/09/18 06/09/18 06/09/18 13:55 13:55 13:55 WBC RBC Hgb Hct MCV MCH MCHC RDW Plt Count MPV Absolute Neuts (auto) Neutrophils % Lymphocytes % Monocytes % Eosinophils % Basophils % PT with INR INR Sodium Potassium Chloride Carbon Dioxide Anion Gap BUN Creatinine Creat Clearance w eGFR Random Glucose Lactic Acid 1.4 Calcium Phosphorus Magnesium Total Bilirubin AST ALT Alkaline Phosphatase Creatine Kinase Troponin I < 0.03 B-Natriuretic Peptide Total Protein Albumin Urine Color Urine Appearance Urine pH Ur Specific Earth Urine Protein Urine Glucose (UA) Urine Ketones Urine Blood Urine Nitrite Urine Bilirubin Urine Urobilinogen Ur Leukocyte Esterase Blood Type A POSITIVE Antibody Screen Negative 06/09/18 06/09/18 06/10/18 13:55 17:30 08:04 WBC 8.3 RBC 4.18 Hgb 13.5 Hct 42.0 MCV 100.5 H MCH 32.2 MCHC 32.1 RDW 15.5 Plt Count 204 MPV 9.2 Absolute Neuts (auto) 7.9 Neutrophils % 94.2 H D Lymphocytes % 4.7 L D Monocytes % 0.5 L D Eosinophils % 0.4 D Basophils % 0.2 PT with INR INR Sodium Potassium Chloride Carbon Dioxide Anion Gap BUN Creatinine Creat Clearance w eGFR Random Glucose Lactic Acid Calcium Phosphorus Magnesium Total Bilirubin AST ALT Alkaline Phosphatase Creatine Kinase Troponin I B-Natriuretic Peptide Total Protein Albumin Urine Color Yellow Urine Appearance Clear Urine pH 6.0 Ur Specific Earth 1.015 Urine Protein Negative Urine Glucose (UA) Negative Urine Ketones Negative Urine Blood Negative Urine Nitrite Negative Urine Bilirubin Negative Urine Urobilinogen 0.2 Ur Leukocyte Esterase Negative Blood Type A POSITIVE Antibody Screen 06/10/18 08:04 WBC RBC Hgb Hct MCV MCH MCHC RDW Plt Count MPV Absolute Neuts (auto) Neutrophils % Lymphocytes % Monocytes % Eosinophils % Basophils % PT with INR INR Sodium 136 Potassium 4.2 Chloride 98 Carbon Dioxide 36 H Anion Gap 2 L BUN 15 Creatinine 0.7 Creat Clearance w eGFR > 60 Random Glucose 128 H Lactic Acid Calcium 8.7 Phosphorus 3.5 Magnesium 1.9 Total Bilirubin AST ALT Alkaline Phosphatase Creatine Kinase Troponin I B-Natriuretic Peptide Total Protein Albumin Urine Color Urine Appearance Urine pH Ur Specific Earth Urine Protein Urine Glucose (UA) Urine Ketones Urine Blood Urine Nitrite Urine Bilirubin Urine Urobilinogen Ur Leukocyte Esterase Blood Type Antibody Screen Radiology Reports Chest CTA IMPRESSION: There is no evidence of a pulmonary embolus within the main pulmonary artery and its proximal branches, bilaterally. Atelectatic changes/ consolidation of the right lung base, suggestive of pneumonia. Moderate to marked COPD changes mainly involving the upper lobes. 6 mm nodule in the left upper lobe, posteriorly abutting the fissure, seen on axial image 21 for which a follow-up CT scan of the chest in one year is needed. Reported By: Miguel Angel Marmolejo MD 06/09/18 9834 CXR portable Imaging reveals clear lungs, unfolded aorta, prominent fabiola especially on the right and normal heart. An acute process is not seen. The angles are sharp and the bones and soft tissues are intact. There are no prior studies for comparison. Reported By: Gigi Guillen MD 06/09/18 7829 HOSPITAL COURSE: hypoxic respiratory failure/COPD exac - pt refusing ABG but pt is likely hypercarbic as well. - cont oxygen. - pulmonary consulted and followed - doubt CT findings represent acute PNA given lack of fever, cough or elevated WBC, will hold further ABT - solumedrol 40mg IVP q6h - duoneb QID - home advair changed to formulary symbicort - home incruse changed to formulary spiriva HTN/HLD - cont pt home meds Psych/dementia - cont home meds PLAN Note: The patient AND (SONYA CANSECO) insists on leaving the Hospital and is signing out against medical advice. Care being refused: The patient understands the risks and complications that may result from the refusal of medical care which may include and permanent disability. The patient has the mental capacity of understanding the risks of refusing care and is capable of making an informed decision. The patient was instructed to return to the Emergency Department should he/she change his/her mind regarding medical care or should his/her condition worsen. The patient signed the Against Medical Advice form. Date of Admission:06/09/18 Date of Discharge: 06/10/18 Minutes to complete discharge: 45 Discharge Summary Reason For Visit: COPD, HYPOXIA Current Active Problems Acute on chronic respiratory failure with hypoxia and hypercapnia (Acute) COPD (chronic obstructive pulmonary disease) (Acute) HLD (hyperlipidemia) (Acute) HTN (hypertension) (Acute) Pneumonia (Acute) Shortness of breath (Acute) Condition: Guarded - Instructions Diet, Activity, Other Instructions: you are leaving the hospital AGAINST MEDICAL ADVICE Please continue prednisone daily as prescribed Please take prednisone with food continue all medications as prescribed A prescription for prednisone and albuterol (nebulizer) was sent to your pharmacy please follow up with your primary care physician and Pulmonary within 1 week If any new or persistent symptoms develop please return to emergency department Referrals: Venkatesh Santiago MD [Staff Physician] - Napoleon Brown [Primary Care Provider] - Disposition: AGAINST MEDICAL ADVICE - Home Medications Comprehensive Discharge Medication List: Ambulatory Orders Albuterol Sulfate Inhaler - [Ventolin Hfa Inhaler -] 1 - 2 inh PO TID PRN Alprazolam [Xanax] 2 mg PO HS 06/09/18 Atenolol [Tenormin] 50 mg PO DAILY 06/09/18 Atorvastatin Ca [Lipitor] 80 mg PO HS 06/09/18 Buprenorphine HCl 2 tab SL BID 06/09/18 Bupropion HCl [Wellbutrin Xl -] 150 mg PO DAILY 06/09/18 Bupropion HCl [Wellbutrin Xl -] 300 mg PO DAILY 06/09/18 Duloxetine HCl [Cymbalta] 60 mg PO BID 06/09/18 Fluticasone/Salmeterol [Advair 250-50 Diskus] 1 each IH BID PRN 06/09/18 Levothyroxine [Synthroid -] 75 mcg PO DAILY 06/09/18 Quetiapine Fumarate [Seroquel -] 75 mg PO BID 06/09/18 Tamsulosin HCl [Flomax] 0.4 mg PO BID 06/09/18 Timolol 0.25% [Timoptic 0.25%] 1 drop OU BID 06/09/18 Umeclidinium [place] [Incruse Ellipta] 62.5 mcg IH DAILY PRN 06/09/18 Buprenorphine HCl 4 mg SL BID 06/10/18 This patient is new to me today: Yes Date on this admission: 06/10/18 Emergency Visit: Yes ED Registration Date: 06/09/18 Care time: The patient presented to the Emergency Department on the above date and was hospitalized for further evaluation of their emergent condition. Critical Care patient: No - Discharge Referral Referred to [facility] No
--- NOTE | 2018-06-10 12:58 | EKG ---
Test Reason : Blood Pressure : / mmHG Vent. Rate : 084 BPM Atrial Rate : 084 BPM P-R Int : 140 ms QRS Dur : 098 ms QT Int : 376 ms P-R-T Axes : 029 049 047 degrees QTc Int : 444 ms NORMAL SINUS RHYTHM NORMAL ECG NO PREVIOUS ECGS AVAILABLE Confirmed by MD DINAH, JUDY ([id number]) on 06/10/2018 12:58:15 PM Referred By: DIAMOND Confirmed By:JUDY NIX MD
[2018-06-10] MEDS ORDERED: ATORVASTATIN CA 80 MG TABLET (FP) PO SCH (22:00)
== END 2018-06-10 12:57 | disposition left against medical advice (07) | DRG 189 ==
LOC: FER 12:57 → FM/S 22:37
PROVIDERS: ADMIT Internal Medicine; ATTEND Nurse Practitioner Family
PROC: 3E0F7GC Introduction of Other Therapeutic Substance into Respiratory Tract, Via Natural or Artificial Opening (ICD-10-PCS; principal; 2018-06-09)
DX: J96.21 Acute and chronic respiratory failure with hypoxia (principal); J18.9 Pneumonia, unspecified organism; J44.1 Chronic obstructive pulmonary disease with (acute) exacerbation; J98.11 Atelectasis; F03.90 Unspecified dementia, unspecified severity, without behavioral disturbance, psychotic disturbance, mood disturbance, and anxiety; J96.22 Acute and chronic respiratory failure with hypercapnia; E78.5 Hyperlipidemia, unspecified; I10 Essential (primary) hypertension; J44.9 Chronic obstructive pulmonary disease, unspecified; R91.1 Solitary pulmonary nodule
CPT/HCPCS: 36415; 71045-TC-FY; 71275-TC; 80048; 80053; 81003; 82550; 83605; 83735; 83880; 84100; 84484; 85025; 85610; 86850; 86900; 86901; 87040; 87086; 93005